=== PATIENT | male | born 1950 | race Caucasian/White ===

== ENCOUNTER 2016-11-27 05:43 | Outpatient (CLI) | payer MEDICARE, OTHER ==
[~2016-11-27] VITALS: Ht 172.7 cm; Wt 62.1 kg
[2016-11-27] MEDS ORDERED: METO-270 PO (11:33)
[2016-11-27] MEDS ORDERED: TIOT18CA2 IH (11:33)
[2016-11-27] MEDS ORDERED: FLUT1DIS26 IH (11:33)
== END 2016-11-27 11:34 ==
LOC: PREOP 05:43
PROVIDERS: ATTEND Surgery
DX: Z01.818 Encounter for other preprocedural examination (principal); Z12.11 Encounter for screening for malignant neoplasm of colon

== ENCOUNTER 2016-11-29 11:29 | Day surgery (SDC) | payer MEDICARE ==
[~2016-11-29 11:29] MED LIST: FLUT1DIS26 IH; METO-270 PO; TIOT18CA2 IH
--- OUTSIDE RECORDS SUMMARY | 2016-11-29 11:32 | XMS REPORT | Continuity of Care Document ---
Author Author [facility] Organization [facility] Address Unknown Phone Unavailable Support Name Relationship Address Phone LA GRANT DO Caregiver [address] [place], [place] [id number] Insurance Providers Payer Name Policy Number Subscriber Name Relationship Unknown Chris Bucio 20 Self / Same As Patient Advance Directives Directive Response Recorded Date/Time Advance Directives Yes 11/27/16 11:27am Health Care Power of Manager University Yes 11/27/16 11:27am Organ Donor No 11/27/16 11:27am Resuscitation Status Full Code 11/27/16 11:27am Problems No problem information available. Medications Current Home Medications Medication Dose Units Route Directions Days/Qty Instructions Start Date Fluticasone/Salmeterol 1 Each 1 Each Inhalation Twice A Day 11/27/16 Tiotropium [place] 1 Inh 1 Inh Inhalation Daily 11/27/16 Metoprolol Succinate 25 Mg 25 Mg Oral Bedtime 11/27/16 Social History Social History Problem Response Recorded Date/Time Alcohol Use Denies Use 11/27/2016 11:27am Recreational Drug Use No 11/27/2016 11:27am Recent Foreign Travel No 11/27/2016 11:26am Recent Infectious Disease Exposure No 11/27/2016 11:26am Smoking Status Never a Smoker 11/27/2016 11:27am Type Used Smokeless Tobacco 11/27/2016 11:27am Recent Hopitalizations No 11/27/2016 11:27am Query Response Start Date Stop Date Smoking Status Never a Smoker Hospital Discharge Instructions No hospital discharge instructions. Plan of Care Discharge Date 11/27/16 11:34am Prescriptions See Medication Section Functional Status No functional status results. Allergies, Adverse Reactions, Alerts Allergen Type Severity Reaction Status Last Updated Codeine Allergy Unknown NAUSEA Active 11/27/16 Immunizations No immunization records. Vital Signs Acute Vital Signs Vital Response Date/Time Height (Feet) 5 feet 11/27/2016 11:26am Height (Inches) 8.00 inches 11/27/2016 11:26am Height (Calculated Centimeters) 172.631053 cm 11/27/2016 11:26am Weight (Pounds) 137 pounds 11/27/2016 11:26am Weight (Ounces) 0.0 oz 11/27/2016 11:26am Weight (Calculated Grams) 75156.16 gm 11/27/2016 11:26am Weight (Calculated Kilograms) 62.077102 kilograms 11/27/2016 11:26am Calculated BMI 20.8 11/27/2016 11:26am Results No known relevant diagnostic tests, laboratory data and/or discharge summary. Procedures No known history of procedures. Encounters Encounter Location Arrival/Admit Date Discharge/Depart Date Attending Provider Departed Clinic [facility] 11/27/16 5:43am 11/27/16 11: 34am LA GRANT DO
--- OUTSIDE RECORDS SUMMARY | 2016-11-29 11:32 | XMS REPORT | Continuity of Care Document ---
Author Author [facility] Organization [facility] Address Unknown Phone Unavailable Support Name Relationship Address Phone LA GRANT DO Caregiver [address] [place], [place] [phone] Insurance Providers Payer Name Policy Number Subscriber Name Relationship Unknown Chris Bucio 18 Self / Same As Patient Advance Directives Directive Response Recorded Date/Time Advance Directives Yes 11/27/16 11:27am Health Care Power of Physical Therapist Yes 11/27/16 11:27am Organ Donor No 11/27/16 11:27am Resuscitation Status Full Code 11/27/16 11:27am Problems No problem information available. Medications Current Home Medications Medication Dose Units Route Directions Days/Qty Instructions Start Date Fluticasone/Salmeterol 1 Each 1 Each Inhalation Twice A Day 11/27/16 Tiotropium [place] 1 Inh 1 Inh Inhalation Daily 11/27/16 [...] 8.00 inches 11/27/2016 11:26am Height (Calculated Centimeters) 172.167515 cm 11/27/2016 11:26am Weight (Pounds) 137 pounds 11/27/2016 11:26am Weight (Ounces) 0.0 oz 11/27/2016 11:26am Weight (Calculated Grams) 32874.16 gm 11/27/2016 11:26am Weight (Calculated Kilograms) 62.330020 kilograms 11/27/2016 11:26am Calculated BMI 20.8 11/27/2016 11:26am Results No known relevant diagnostic tests, laboratory data and/or discharge summary. Procedures No known history of procedures. Encounters Encounter Location Arrival/Admit Date Discharge/Depart Date Attending Provider Departed Clinic [facility] 11/27/16 5:43am 11/27/16 11: 34am LA GRANT DO
[2016-11-29 12:30] VITALS: BP 119/98
[2016-11-29] MEDS ORDERED: NS IV 1000 ML 1,000 ML IV STA (12:31)
--- NOTE | 2016-11-29 13:13 | Progress Note-Pre Operative ---
Pre-Operative Progress Note H&P Reviewed The H&P was reviewed, patient examined and no changes noted. Date H&P Reviewed: Nov 29, 2016 Time H&P Reviewed: 13:11 Pre-Operative Diagnosis: screening colonoscopy LA GRANT DO Nov 29, 2016 13:13
[2016-11-29] MEDS ORDERED: MIDAZOLAM 2 MG/2 ML (VERSED) VIAL ONE (13:24)
[2016-11-29] MEDS ORDERED: proPOfol 200 MG/20 ML (DIPRIVAN) VIAL IV ONE (13:24)
--- NOTE | 2016-11-29 13:51 | Progress Note-Post Operative ---
Post-Operative Progess Note Cardroom Supervisor none Pre-Operative Diagnosis screening colonoscopy Post-Operative Diagnosis Tics Internal hem. Post-Op Procedure Note Date of Procedure: Nov 29, 2016 Name of Procedure: colonoscopy Anesthesia Type MAC Estimated blood loss (mL): none Specimen(s) collected none LA GRANT DO Nov 29, 2016 13:51
--- NOTE | 2016-11-29 13:52 | Endoscopy Discharge Instruct ---
Findings Findings 1.: Diverticulosis 2.: Internal Hemorrhoids Discharge Instructions - Activity: You might feel a little sleepy until tomorrow. This is due to the medicine you received to relax you. Until tomorrow, you should: NOT drive a car, operate machinery or power tools. NOT drink any alcoholic beverages. NOT make any important decisions or sign importortant papers. Do not return to work until tomorrow, unless otherwise instructed. Resume previous activities tomorrow. Diet: Start by taking liquids. If you tolerate liquids, advance to solid food. Instructions: 1.: Colonscopy in 10 years Notify Physician - If you experience excessive bleeding, unusual abdominal pain, fever, or chest pain, contact your doctor immediately. Phone number [phone] Follow-Up: - I have received and understand the above instructions and will call my doctor if I have any further questions. Patient Signature Date Nurse Signature Other (Relationship) LA GRANT DO Nov 29, 2016 13:52
[2016-11-29 14:15] VITALS: BP 119/98
[2016-11-29 14:45] VITALS: BP 128/85
[2016-11-29 15:00] VITALS: BP 128/85
--- NOTE | 2016-11-30 09:52 | PROCEDURE REPORT ---
PROCEDURE PHYSICIAN: LA ALEJO DATE OF PROCEDURE: 11/29/2016 PREOPERATIVE DIAGNOSIS: 1. Screening colonoscopy. 2. Remote history of bleeding. 3. Remote history of colon resection. POSTOPERATIVE DIAGNOSIS: 1. Diverticulosis. 2. Internal hemorrhoids, grade II PROCEDURE: Colonoscopy. SURGEON: Dr. Alejo LOOP MACHINE OPERATOR: None. ANESTHESIA: IV sedation with propofol by the BAG BLEACHER. SPECIMENS: None. BLOOD LOSS: None. FLUIDS: Per anesthesia. POSTOPERATIVE: Stable. INDICATION FOR THE PROCEDURE: The patient is a 66-year-old male who had a colon resection for what sounded like perforated diverticulitis. He had a colostomy and then reversal and he has not had a colonoscopy. He has had a little bit of bleeding and some abdominal pain and needed a work-up. FINDINGS: The patient had some diverticula throughout the colon and some grade II internal hemorrhoids, but no other obvious pathology. PROCEDURE NOTE: After informed consent was obtained patient brought to the endoscopy suite, placed decubitus position. He was administered IV sedation and BAG BLEACHER monitored his vitals. The scope was then inserted, pushed all the way to about 140 cm, able to get all the way to the cecum, took a picture of the appendiceal orifice. Noted the ileocecal valve and tried to get in but could not. The slowly withdrew the scope, insufflating, looked circumferential while looking at the cecum, up the ascending colon and to the transverse colon. Throughout here saw a large diverticula and then down the transverse colon into most likely splenic flexure and then probably a portion of the descending colon, however, unsure how much colon was taken out. Then down through this descending portion and into the rectum, retroflex in the rectal vault. Saw some grade II internal hemorrhoids. There was a little bit of liquid fecal material but able to suction most of this up. Some fecal balls, but again they were not blocking anything obvious. Did not see any other pathology. Scope was removed. The patient tolerated the procedure and he was transferred to recovery room in stable condition. Job ID: [id number] Dictated Date: 11/29/2016 15:41:08 Developer Architect Date: 11/30/2016 09:40:18 / [email or web address]
== END 2016-11-29 15:00 | disposition home or self-care (01) ==
LOC: ENDO 11:29
PROVIDERS: ATTEND Surgery
DX: Z12.11 Encounter for screening for malignant neoplasm of colon (principal); K57.30 Diverticulosis of large intestine without perforation or abscess without bleeding; K64.1 Second degree hemorrhoids